=== PATIENT | male | born 1955 | race Caucasian/White ===

== ENCOUNTER 2020-01-12 12:23 | Inpatient (IN) | payer MEDICARE, OTHER, SELFPAY ==
[~2020-01-12] VITALS: Ht 198.1 cm; Wt 138.9 kg
[2020-01-12] MEDS ORDERED: METO-290 PO (13:07)
[2020-01-12] MEDS ORDERED: ACET160T11 PO (13:07)
[2020-01-12] MEDS ORDERED: DOXA1TAB2 PO (13:07)
[2020-01-12] MEDS ORDERED: LIRA0.6P INJ (13:07)
[2020-01-12] MEDS ORDERED: EMPA25TA INJ (13:07)
[2020-01-12] MEDS ORDERED: ENAL1SOL2 PO-COUM (13:07)
[2020-01-12] MEDS ORDERED: WARF5TAB9 PO (13:07)
[2020-01-12] MEDS ORDERED: MELA5TAB22 PO (13:07)
[2020-01-12] MEDS ORDERED: WARF3TAB8 PO (13:07)
--- NOTE | 2020-01-12 13:28 | NUR ---
PT TO ROOM 33 PER PEDIS. PT C/O SOB. PT HAS BEEN SICK SINCE BEGINNING OF DECEMBER. PT HR ON MONITOR WAS 39, IN AN IRREGULAR RYTHM. PT HAS DECREASED HIS METOPROL, BUT HR REMAINS LOW. PT STATES "I CAN USUALLY TELL WHEN MY PRESSURE IS LOW, BUT I HAVEN'T FELT THAT WAY IN A LONG TIME" MD IN TO ASSESS PATIENT. ORDERS RECEIVED. LAB DRAWN AFTER LINE PLACED. PT RESTING. CXR DONE. PT ON MONITOR, GOWN PLACED AND CALL LIGHT WITH PATIENT.
[2020-01-12] MEDS ORDERED: SODIUM CHLORIDE FLUSH 10ML SYR IVF ONE (13:30)
[2020-01-12 13:32] LABS: BASOPHILS # (AUTO) 0.03 x10^3/uL (0-0.1); BASOPHILS % (AUTO) 0 % (0-1); EOSINOPHILS # (AUTO) 0.21 x10^3/uL (0-0.4); EOSINOPHILS % (AUTO) 3 % (1-7); LYMPHOCYTES # (AUTO) 1.66 x10^3/uL (1-3.4); LYMPHOCYTES % (AUTO) 24 % (22-44); MD NO; MEAN CORPUSCULAR HEMOGLOBIN 30.8 pg (27.5-34.5); MEAN CORPUSCULAR HGB CONC 33.3 g/dL (33.2-36.2); MEAN CORPUSCULAR VOLUME 92.7 fL (81-97); MEAN PLATELET VOLUME 7.6 fL (7.4-10.4); MONOCYTES # (AUTO) 0.74 x10^3/uL (0.2-0.8); MONOCYTES % (AUTO) 11 % (2-9); NEUTROPHILS # (AUTO) 4.42 x10^3/uL (1.8-6.8); NEUTROPHILS % (AUTO) 63 % (42-75); PLATELET COUNT 160 x10^3/uL (130-400); RED BLOOD COUNT 4.94 x10^6/uL (4.38-5.82); RED CELL DISTRIBUTION WIDTH 14.1 % (9.4-14.8)
[2020-01-12 13:45] LABS: ALANINE AMINOTRANSFERASE 31 U/L (12-78); ALBUMIN 3.9 g/dL (3.4-5.0); ANION GAP 6 mmol/L (5-15); CALCIUM 8.9 mg/dL (8.5-10.1); CHLORIDE 109 mmol/L (98-107); CREATININE 0.89 mg/dL (0.7-1.3)
[2020-01-12 13:49] LABS: ALKALINE PHOSPHATASE 106 U/L (45-117); BILIRUBIN,TOTAL 1.6 mg/dL (0.2-1.0); TOTAL PROTEIN 7.4 g/dL (6.4-8.2)
[2020-01-12 13:52] LABS: TROPONIN I 0.436 ng/mL (0.000-0.045)
--- NOTE | 2020-01-12 14:09 | NUR ---
Report to Rosalie Yeung RN
[2020-01-12 14:29] LABS: INTERNATIONAL NORMALIZED RATIO 1.9 (0.93-1.1); PROTHROMBIN TIME 20.3 Seconds (9.6-11.5)
--- NOTE | 2020-01-12 14:33 | NUR ---
RECEIVED REPORT FROM ANA BROWN. INTRODUCED MYSELF TO PT. PT RESTING COMFORTABLY. WILL CONTINUE TO MONITOR.
[2020-01-12] MEDS ORDERED: FUROSEMIDE 40 MG/4 ML IV ONE (15:00)
[2020-01-12] MEDS ORDERED: SODIUM CHLORIDE FLUSH 10ML SYR IVF PRN (15:00)
[2020-01-12] MEDS ORDERED: FUROSEMIDE 40 MG/4 ML ONE (15:01)
--- NOTE | 2020-01-12 15:35 | NUR ---
GAVE REPORT TO ROCIO BROWN
[2020-01-12] MEDS: INSULIN LISPRO 100 UNITS/ML, PEN SQ-INSULIN SCH ×2 (16:00→21:00)
[2020-01-12 16:21] LABS: TROPONIN I 0.454 ng/mL (0.000-0.045)
--- NOTE | 2020-01-12 16:50 | NUR ---
GAVE REPORT TO JER
[2020-01-12] MEDS: FUROSEMIDE 40 MG/4 ML IV SCH (17:00)
[2020-01-12 17:15] VITALS: BP 147/64
[2020-01-12] MEDS: DOXAZOSIN 2MG TABLET PO SCH (21:12)
[2020-01-12] MEDS: MELATONIN 5 MG TABLET PO SCH (21:12)
[2020-01-12 21:13] VITALS: BP 142/61
[2020-01-12 23:11] LABS: TROPONIN I 0.421 ng/mL (0.000-0.045)
[2020-01-13 02:34] VITALS: BP 107/51
[2020-01-13 06:36] LABS: BASOPHILS # (AUTO) 0.03 x10^3/uL (0-0.1); BASOPHILS % (AUTO) 1 % (0-1); EOSINOPHILS # (AUTO) 0.26 x10^3/uL (0-0.4); EOSINOPHILS % (AUTO) 4 % (1-7); LYMPHOCYTES % (AUTO) 30 % (22-44); MD NO; MEAN CORPUSCULAR HEMOGLOBIN 30.5 pg (27.5-34.5); MEAN CORPUSCULAR HGB CONC 32.8 g/dL (33.2-36.2); MEAN CORPUSCULAR VOLUME 92.9 fL (81-97); MEAN PLATELET VOLUME 8.3 fL (7.4-10.4); MONOCYTES # (AUTO) 0.69 x10^3/uL (0.2-0.8); MONOCYTES % (AUTO) 10 % (2-9); NEUTROPHILS # (AUTO) 3.67 x10^3/uL (1.8-6.8); NEUTROPHILS % (AUTO) 55 % (42-75); PLATELET COUNT 149 x10^3/uL (130-400); RED BLOOD COUNT 4.74 x10^6/uL (4.38-5.82)
[2020-01-13 06:39] LABS: INTERNATIONAL NORMALIZED RATIO 1.87 (0.93-1.1)
[2020-01-13 06:42] LABS: ALANINE AMINOTRANSFERASE 30 U/L (12-78); ALBUMIN 3.7 g/dL (3.4-5.0); ANION GAP 8 mmol/L (5-15); CALCIUM 8.9 mg/dL (8.5-10.1); CHLORIDE 107 mmol/L (98-107); CREATININE 0.87 mg/dL (0.7-1.3)
[2020-01-13 06:44] LABS: ALKALINE PHOSPHATASE 102 U/L (45-117); BILIRUBIN,TOTAL 1.9 mg/dL (0.2-1.0); TOTAL PROTEIN 7.1 g/dL (6.4-8.2)
[2020-01-13] MEDS: INSULIN LISPRO 100 UNITS/ML, PEN SQ-INSULIN SCH ×4 (07:00→20:46)
[2020-01-13] MEDS ORDERED: WARFARIN 5 MG TABLET PO-COUM ONE (09:00)
[2020-01-13] MEDS ORDERED: FUROSEMIDE 20 MG/2 ML ONE ×2 (09:34→17:04)
[2020-01-13 10:15] VITALS: BP 135/95
[2020-01-13] MEDS: DOXAZOSIN 2MG TABLET PO SCH ×2 (10:17→20:45)
[2020-01-13] MEDS: ENALAPRIL 2.5MG TABLET PO SCH (10:20)
[2020-01-13] MEDS: FUROSEMIDE 40 MG/4 ML IV SCH ×2 (10:22→17:13)
[2020-01-13 13:50] VITALS: BP 141/63
[2020-01-13 17:09] VITALS: BP 148/60
[2020-01-13 20:01] VITALS: BP 145/68
[2020-01-13] MEDS: MELATONIN 5 MG TABLET PO SCH (20:46)
[2020-01-14 00:34] VITALS: BP 139/73
[2020-01-14 06:12] LABS: BASOPHILS # (AUTO) 0.04 x10^3/uL (0-0.1); BASOPHILS % (AUTO) 1 % (0-1); EOSINOPHILS # (AUTO) 0.29 x10^3/uL (0-0.4); EOSINOPHILS % (AUTO) 5 % (1-7); LYMPHOCYTES # (AUTO) 1.61 x10^3/uL (1-3.4); LYMPHOCYTES % (AUTO) 25 % (22-44); MD NO; MEAN CORPUSCULAR HEMOGLOBIN 30.2 pg (27.5-34.5); MEAN CORPUSCULAR HGB CONC 32.4 g/dL (33.2-36.2); MEAN CORPUSCULAR VOLUME 93.3 fL (81-97); MEAN PLATELET VOLUME 8.1 fL (7.4-10.4); MONOCYTES # (AUTO) 0.75 x10^3/uL (0.2-0.8); MONOCYTES % (AUTO) 12 % (2-9); NEUTROPHILS # (AUTO) 3.83 x10^3/uL (1.8-6.8); NEUTROPHILS % (AUTO) 59 % (42-75); PLATELET COUNT 167 x10^3/uL (130-400); RED BLOOD COUNT 4.83 x10^6/uL (4.38-5.82); RED CELL DISTRIBUTION WIDTH 13.8 % (9.4-14.8)
[2020-01-14 06:16] LABS: INTERNATIONAL NORMALIZED RATIO 1.62 (0.93-1.1); PROTHROMBIN TIME 17.3 Seconds (9.6-11.5)
[2020-01-14 06:19] LABS: ANION GAP 4 mmol/L (5-15); CALCIUM 8.9 mg/dL (8.5-10.1); CHLORIDE 106 mmol/L (98-107); CREATININE 0.84 mg/dL (0.7-1.3)
[2020-01-14] MEDS: INSULIN LISPRO 100 UNITS/ML, PEN SQ-INSULIN SCH ×4 (07:00→21:00)
[2020-01-14] MEDS ORDERED: FUROSEMIDE 20 MG/2 ML ONE ×2 (07:59→15:54)
[2020-01-14] MEDS: FUROSEMIDE 40 MG/4 ML IV SCH ×2 (08:08→17:00)
[2020-01-14] MEDS: DOXAZOSIN 2MG TABLET PO SCH ×2 (08:08→20:51)
[2020-01-14 08:15] VITALS: BP 146/66
[2020-01-14] MEDS ORDERED: WARFARIN 7.5 MG TABLET PO-COUM ONE (09:00)
[2020-01-14] MEDS: ENALAPRIL 2.5MG TABLET PO SCH (11:06)
[2020-01-14 13:23] VITALS: BP 116/64
[2020-01-14] MEDS: MELATONIN 5 MG TABLET PO SCH (20:51)
[2020-01-14 21:13] VITALS: BP 159/74
[2020-01-15 02:25] VITALS: BP 118/50
[2020-01-15 06:04] LABS: BASOPHILS # (AUTO) 0.03 x10^3/uL (0-0.1); BASOPHILS % (AUTO) 1 % (0-1); EOSINOPHILS # (AUTO) 0.26 x10^3/uL (0-0.4); EOSINOPHILS % (AUTO) 4 % (1-7); LYMPHOCYTES % (AUTO) 26 % (22-44); MD NO; MEAN CORPUSCULAR HEMOGLOBIN 30.3 pg (27.5-34.5); MEAN CORPUSCULAR HGB CONC 32.6 g/dL (33.2-36.2); MEAN CORPUSCULAR VOLUME 92.8 fL (81-97); MEAN PLATELET VOLUME 7.6 fL (7.4-10.4); MONOCYTES # (AUTO) 0.78 x10^3/uL (0.2-0.8); MONOCYTES % (AUTO) 12 % (2-9); NEUTROPHILS # (AUTO) 3.74 x10^3/uL (1.8-6.8); NEUTROPHILS % (AUTO) 58 % (42-75); PLATELET COUNT 176 x10^3/uL (130-400); RED CELL DISTRIBUTION WIDTH 13.9 % (9.4-14.8)
[2020-01-15 06:10] LABS: ANION GAP 3 mmol/L (5-15); CHLORIDE 105 mmol/L (98-107); CREATININE 0.83 mg/dL (0.7-1.3)
[2020-01-15 06:40] LABS: INTERNATIONAL NORMALIZED RATIO 1.82 (0.93-1.1); PROTHROMBIN TIME 19.4 Seconds (9.6-11.5)
[2020-01-15 07:59] VITALS: BP 121/54
[2020-01-15] MEDS ORDERED: FUROSEMIDE 20 MG/2 ML ONE ×2 (08:50→17:02)
[2020-01-15] MEDS ORDERED: WARFARIN 7.5 MG TABLET PO-COUM ONE (09:00)
[2020-01-15] MEDS: DOXAZOSIN 2MG TABLET PO SCH ×2 (09:01→21:03)
[2020-01-15] MEDS: FUROSEMIDE 40 MG/4 ML IV SCH ×2 (09:02→17:00)
[2020-01-15] MEDS: ENALAPRIL 2.5MG TABLET PO SCH (09:54)
[2020-01-15] MEDS: INSULIN LISPRO 100 UNITS/ML, PEN SQ-INSULIN SCH ×4 (09:55→22:12)
[2020-01-15] MEDS ORDERED: POTASSIUM CHLORIDE 20 MEQ TAB.ER.PRT PO ONE (12:30)
[2020-01-15] MEDS ORDERED: MAGNESIUM HYDROXIDE 8%, 30ML UDC PO PRN (13:30)
[2020-01-15 15:36] VITALS: BP 137/74
[2020-01-15 21:01] VITALS: BP 151/78
[2020-01-15] MEDS: DOCUSATE 100 MG CAPSULE PO SCH (21:03)
[2020-01-15] MEDS: MELATONIN 5 MG TABLET PO SCH (21:03)
[2020-01-16 01:47] VITALS: BP 109/59
[2020-01-16 05:16] LABS: INTERNATIONAL NORMALIZED RATIO 2.08 (0.93-1.1); PROTHROMBIN TIME 22.2 Seconds (9.6-11.5)
[2020-01-16 05:20] LABS: ANION GAP 6 mmol/L (5-15); BASOPHILS # (AUTO) 0.04 x10^3/uL (0-0.1); BASOPHILS % (AUTO) 1 % (0-1); CALCIUM 8.7 mg/dL (8.5-10.1); CHLORIDE 104 mmol/L (98-107); CREATININE 0.78 mg/dL (0.7-1.3); EOSINOPHILS # (AUTO) 0.28 x10^3/uL (0-0.4); EOSINOPHILS % (AUTO) 4 % (1-7); LYMPHOCYTES # (AUTO) 1.75 x10^3/uL (1-3.4); LYMPHOCYTES % (AUTO) 25 % (22-44); MD NO; MEAN CORPUSCULAR HEMOGLOBIN 30.6 pg (27.5-34.5); MEAN CORPUSCULAR HGB CONC 32.9 g/dL (33.2-36.2); MEAN CORPUSCULAR VOLUME 92.9 fL (81-97); MEAN PLATELET VOLUME 7.8 fL (7.4-10.4); MONOCYTES # (AUTO) 0.91 x10^3/uL (0.2-0.8); MONOCYTES % (AUTO) 13 % (2-9); NEUTROPHILS # (AUTO) 3.99 x10^3/uL (1.8-6.8); NEUTROPHILS % (AUTO) 57 % (42-75); PLATELET COUNT 180 x10^3/uL (130-400); RED BLOOD COUNT 4.95 x10^6/uL (4.38-5.82); RED CELL DISTRIBUTION WIDTH 13.5 % (9.4-14.8)
[2020-01-16 06:45] VITALS: BP 128/72
[2020-01-16] MEDS: INSULIN LISPRO 100 UNITS/ML, PEN SQ-INSULIN SCH ×4 (07:00→20:10)
[2020-01-16] MEDS: FUROSEMIDE 40 MG/4 ML IV SCH (07:30)
[2020-01-16] MEDS ORDERED: FUROSEMIDE 20 MG/2 ML ONE (07:52)
[2020-01-16] MEDS: DOXAZOSIN 2MG TABLET PO SCH ×2 (07:58→20:09)
[2020-01-16] MEDS: DOCUSATE 100 MG CAPSULE PO SCH ×2 (07:58→20:09)
[2020-01-16] MEDS: ENALAPRIL 2.5MG TABLET PO SCH (07:59)
[2020-01-16] MEDS: FUROSEMIDE 40 MG TABLET PO SCH ×2 (08:41→20:09)
[2020-01-16] MEDS ORDERED: POTASSIUM CHLORIDE 20 MEQ TAB.ER.PRT PO ONE (09:00)
[2020-01-16 13:15] VITALS: BP 136/69
[2020-01-16] MEDS ORDERED: WARFARIN 7.5 MG TABLET PO-COUM ONE (16:53)
[2020-01-16] MEDS: MELATONIN 5 MG TABLET PO SCH (20:09)
[2020-01-16 20:13] VITALS: BP 144/75
[2020-01-17 02:00] VITALS: BP 137/72
[2020-01-17 05:11] LABS: INTERNATIONAL NORMALIZED RATIO 2.23 (0.93-1.1); PROTHROMBIN TIME 23.8 Seconds (9.6-11.5)
[2020-01-17 05:19] LABS: ANION GAP 6 mmol/L (5-15); CHLORIDE 104 mmol/L (98-107); CREATININE 0.73 mg/dL (0.7-1.3)
[2020-01-17 06:35] VITALS: BP 126/74
[2020-01-17] MEDS: INSULIN LISPRO 100 UNITS/ML, PEN SQ-INSULIN SCH ×2 (07:00→11:00)
[2020-01-17] MEDS: DOXAZOSIN 2MG TABLET PO SCH (07:58)
[2020-01-17] MEDS: FUROSEMIDE 40 MG TABLET PO SCH (07:59)
[2020-01-17] MEDS: ENALAPRIL 2.5MG TABLET PO SCH (07:59)
[2020-01-17] MEDS: DOCUSATE 100 MG CAPSULE PO SCH (07:59)
[2020-01-17] MEDS ORDERED: POTASSIUM CHLORIDE 20 MEQ TAB.ER.PRT PO ONE (09:00)
[2020-01-17] MEDS ORDERED: FURO40TA6 PO (11:13)
[2020-01-17] MEDS ORDERED: HYDR-3341 PO (11:13)
[2020-01-17] MEDS ORDERED: POTA20TA89 PO (11:16)
[2020-01-17 12:14] VITALS: BP 137/78
[2020-01-17] MEDS ORDERED: WARFARIN 2 MG TABLET PO-COUM ONE (18:00)
[2020-01-17] MEDS ORDERED: WARFARIN 5 MG TABLET PO-COUM ONE (18:00)
== END 2020-01-17 12:43 | disposition home or self-care (01) | DRG 280 ==
LOC: ED 13:32 → EDIP 14:53 → 4NE 17:13 → 4EST 01-15 14:51
PROVIDERS: ADMIT Internal Medicine; ATTEND Internal Medicine
DX: I11.0 Hypertensive heart disease with heart failure (principal); I21.A1 Myocardial infarction type 2; J18.9 Pneumonia, unspecified organism; D68.69 Other thrombophilia; I50.33 Acute on chronic diastolic (congestive) heart failure; E11.9 Type 2 diabetes mellitus without complications; E66.01 Morbid (severe) obesity due to excess calories; G47.33 Obstructive sleep apnea (adult) (pediatric); I48.91 Unspecified atrial fibrillation; Z79.4 Long term (current) use of insulin; Z82.49 Family history of ischemic heart disease and other diseases of the circulatory system; Z87.891 Personal history of nicotine dependence; Z79.899 Other long term (current) drug therapy; Z68.35 Body mass index [BMI] 35.0-35.9, adult; Z20.828 Contact with and (suspected) exposure to other viral communicable diseases
CPT/HCPCS: 36415; 71045; 80048; 80053; 82962; 83036; 83735; 83880; 84443; 84484; 85025; 85610; 93005; 93308; 93321; 93325; 99285; G0378; J1940; J1815; U0001

== ENCOUNTER → 2020-04-19 | Outpatient (CLI) | payer MEDICARE ==
[~2020-04-19] MED LIST: ACET160T11 PO; DOXA1TAB2 PO; EMPA25TA INJ; ENAL1SOL2 PO-COUM; FURO40TA6 PO; HYDR-3341 PO; LIRA0.6P INJ; MELA5TAB22 PO; METO-290 PO; POTA20TA89 PO; WARF3TAB8 PO; WARF5TAB9 PO
== END | disposition home or self-care (01) ==
LOC: CFH 09:27
PROVIDERS: ATTEND Internal Medicine Cardiovascular Disease
DX: I48.91 Unspecified atrial fibrillation (principal); E78.2 Mixed hyperlipidemia; I42.8 Other cardiomyopathies; I48.20 Chronic atrial fibrillation, unspecified
CPT/HCPCS: 71046